=== PATIENT | female | born 1990 | race Two or more races ===

== ENCOUNTER → 2024-05-31 | Outpatient (CLI) | payer BC, MEDICAID ==
[2024-05-31 10:06] LABS: Urine Bacteria None Seen /hpf (None Seen)
[2024-05-31 11:00] LABS: Urine Blood Negative /uL (Negative); Urine Clarity Clear (Clear); Urine Color Yellow (Yellow); Urine Mucus FEW (None Seen); Urine Protein, UAD TRACE (Negative); Urine Specific Gravity 1.023 (1.001-1.035); Urine Urobilinogen Normal (Negative); Urine WBC 1 /hpf (0 - 5)
[2024-05-31 11:06] LABS: Basophils # (auto) 0 10 ^3/uL (0-0.2); Basophils % (auto) 0.5 % (0.0-2.0); Eosinophils # (auto) 0.1 10 ^3/uL (0-0.8); Eosinophils % (auto) 0.8 % (0.0-7.0); Hematocrit 43.1 % (36.0-46.0); Hemoglobin 14.6 g/dL (12.2-16.2); Lymphocytes # (auto) 2.8 10 ^3/uL (0.4-5.4); Mean Corpuscular Hemoglobin 29.8 pg (28.0-32.0); Mean Corpuscular Hgb Conc. 33.8 g/dL (32.0-36.0); Mean Corpuscular Volume 88.2 fL (80.0-100.0); Monocytes # (auto) 0.6 10 ^3/uL (0-1.3); Monocytes % (auto) 6.3 % (0.0-12.0); Neutrophils # (auto) 5.9 10 ^3/uL (1.6-8.6); Neutrophils % (auto) 62.4 % (37.0-80.0); Platelet Count (auto) 272 10^3/uL (140-450); Red Blood Cells 4.88 10^6/uL (4.0-5.20); Red Cell Distribution Width 16.2 % (11.8-14.3); White Blood Cell 9.4 10^3/uL (4.4-10.8)
[2024-05-31 11:10] LABS: Folate (Folic Acid) 10.79 ng/mL (>5.38)
[2024-05-31 11:12] LABS: Alanine Aminotransferase 25 U/L (7-40); Albumin 4.4 g/dL (3.2-4.8); Alkaline Phosphatase 67 U/L (46-116); Anion Gap 8 (5-15); Aspartate Aminotransferase 23 U/L (13-40); BUN/Creatinine Ratio 8.6 (10.0-20.0); Blood Urea Nitrogen 7 mg/dL (9-23); Calcium 9.7 mg/dL (8.7-10.4); Carbon Dioxide 25 mmol/L (20-31); Chloride 106 mmol/L (98-107); Cholesterol 151 mg/dL (< 200); Glucose 106 mg/dL (74-106); HDL Cholesterol 50 mg/dL (40-59); LDL Cholesterol 77 mg/dL (< 100); Potassium 4.1 mmol/L (3.5-5.1); Sodium 139 mmol/L (136-145); Triglycerides 192 mg/dL (< 150)
[2024-05-31 11:13] LABS: Bilirubin, Total 0.4 mg/dL (0.2-1.0); Leuteinizing Hormone 8.6 IU/L; Total Protein 7.3 g/dL (5.7-8.2)
[2024-05-31 11:14] LABS: Follicle Stimulating Hormone 4.65 IU/L (SEE BELOW); Prolactin 8.57 ng/mL (2.8-29.2)
[2024-05-31 11:33] LABS: Uric Acid 7.5 mg/dL (3.1-7.8)
[2024-06-01 08:06] LABS: Complement C3 128 mg/dL (82-167); Rheumatoid Arthritis Factor <10.0 IU/mL (<14.0); Thyroid Peroxidase (TPO) Ab 166 IU/mL (0-34)
[2024-06-01 15:07] LABS: Anti-Nuclear Antibody Direct Negative (Negative); Anti-dsDNA Antibody 4 IU/mL (0-9); Antiscleroderma-70 Antibody <0.2 AI (0.0-0.9); RNP Antibody <0.2 AI (0.0-0.9); Sjogren's Anti-SS-A Antibody <0.2 AI (0.0-0.9); Sjogren's Anti-SS-B Antibody <0.2 AI (0.0-0.9); Smith Antibody <0.2 AI (0.0-0.9)
== END | disposition home or self-care (01) ==
LOC: LAB 09:50
PROVIDERS: ATTEND Family Medicine
DX: E66.01 Morbid (severe) obesity due to excess calories (principal); R76.8 Other specified abnormal immunological findings in serum; Z00.00 Encounter for general adult medical examination without abnormal findings; Z84.0 Family history of diseases of the skin and subcutaneous tissue
CPT/HCPCS: 36415; 80053; 80061; 81001; 82306; 82607; 82626; 82670; 82746; 83001; 83002; 83036; 83540; 83550; 84144; 84146; 84403; 84443; 84550; 85025; 86160; 86225; 86235; 86376; 86431

== ENCOUNTER 2024-09-03 07:11 | Day surgery (SDC) | payer BC, MEDICAID ==
[2024-08-29 09:21] LABS: Urine Bacteria None Seen /hpf (None Seen)
[2024-08-29 10:10] LABS: Alanine Aminotransferase 26 U/L (7-40); Alkaline Phosphatase 59 U/L (46-116); Anion Gap 6 (5-15); BUN/Creatinine Ratio 8.3 (10.0-20.0); Calcium 9.6 mg/dL (8.7-10.4); Carbon Dioxide 28 mmol/L (20-31); Chloride 104 mmol/L (98-107); Sodium 138 mmol/L (136-145)
[2024-08-29 10:11] LABS: Albumin 4.1 g/dL (3.2-4.8); Aspartate Aminotransferase 20 U/L (13-40)
[2024-08-29 10:12] LABS: Bilirubin, Total 0.4 mg/dL (0.2-1.0); Blood Urea Nitrogen 7 mg/dL (9-23); Glucose 115 mg/dL (74-106); Total Protein 6.6 g/dL (5.7-8.2)
[2024-08-29 10:48] LABS: Basophils # (auto) 0 10 ^3/uL (0-0.2); Basophils % (auto) 0.4 % (0.0-2.0); Eosinophils # (auto) 0.1 10 ^3/uL (0-0.8); Hematocrit 39.9 % (36.0-46.0); Hemoglobin 13.2 g/dL (12.2-16.2); Lymphocytes # (auto) 2.8 10 ^3/uL (0.4-5.4); Lymphocytes % (auto) 35.7 % (10.0-50.0); Mean Corpuscular Hemoglobin 28.9 pg (28.0-32.0); Mean Corpuscular Volume 87.3 fL (80.0-100.0); Monocytes # (auto) 0.6 10 ^3/uL (0-1.3); Monocytes % (auto) 7.7 % (0.0-12.0); Neutrophils # (auto) 4.3 10 ^3/uL (1.6-8.6); Neutrophils % (auto) 55.2 % (37.0-80.0); Platelet Count (auto) 214 10^3/uL (140-450); Red Blood Cells 4.57 10^6/uL (4.0-5.20); White Blood Cell 7.8 10^3/uL (4.4-10.8)
[2024-08-29 11:15] LABS: Urine Blood Negative /uL (Negative); Urine Clarity Clear (Clear); Urine Color Light-Yellow (Yellow); Urine Mucus FEW (None Seen); Urine Protein, UAD Negative (Negative); Urine Specific Gravity 1.019 (1.001-1.035); Urine Squamous Epithelial Cell FEW /hpf (<5); Urine Urobilinogen Normal (Negative); Urine WBC 1 /hpf (0 - 5); Urine pH 5.5 (5.0-9.0)
[2024-08-29 11:37] LABS: Prothrombin Time 10.5 sec (9.3-11.8)
[2024-08-29 11:38] LABS: INR 0.99 (0.9-1.15); Partial Thromboplastin Time 25.3 SEC (24.5-34.5)
[~2024-09-03] VITALS: Ht 162.6 cm; Wt 117.9 kg
[~2024-09-03 07:11] MED LIST: CLON-1003 PO; LISI20TA60 PO; MELA10TA PO; TRAZ150T84 PO
[2024-09-03] MEDS ORDERED: PROPOFOL 10 MG/ML 20 ML IV ONE (07:56)
[2024-09-03] MEDS ORDERED: KETAMINE 50mg/ML 1ml syringe ONE (07:56)
[2024-09-03] MEDS ORDERED: SODIUM CHLORIDE LOCK 20 ML ONE (08:00)
[2024-09-03] MEDS ORDERED: EPINEPHrine HCL 1 MG/1 ML AMP ONE (08:00)
[2024-09-03] MEDS ORDERED: PHENYLEPHRINE HCL 10 MG/ML VL ONE (08:00)
[2024-09-03] MEDS ORDERED: ONDANSETRON HCL 4 MG/2 ML VIAL ONE (08:24)
[2024-09-03 09:15] VITALS: BP 128/74; PULSE 65; RESP 14; O2SAT 95
--- NOTE | 2024-09-04 11:49 | DVHNC2 ---
Procedure - PROCEDURE DATE: September 03, 2024 SURGEON: Shaka Maloney MD REFERRING PROVIDER: Jaimee Gomez PROCEDURE PERFORMED: 1. EGD WITH BIOPSY WITH ANESTHESIA 2. COLONOSCOPY WITH HOT SNARE POLYPECTOMY WITH ANESTHESIA 3. COLONOSCOPY WITH BIOPSY WITH ANESTHESIA 4. COLONOSCOPY WITH ENDOCLIP PLACEMENT WITH ANESTHESIA PRE-PROCEDURE DIAGNOSIS: 1. Diarrhea 2. Hematochezia POSTPROCEDURE DIAGNOSIS: 1. LA grade capital a erosive esophagitis 2. Z-line at 37 cm 3. Moderate erosive gastritis, biopsies taken 4. Normal duodenum, biopsies taken 5. 4 mm ascending colon polyp removed with biopsy forceps 5. Mild left-sided diverticulosis 6. 3 mm descending colon polyp removed with biopsy forceps 7. 1.5 cm descending colon polyp removed with hot snare polypectomy 8. 1+ internal hemorrhoids INDICATIONS FOR PROCEDURE: The patient is a 34-year-old female with chronic diarrhea and rectal bleeding, family history of colon cancer who presents for outpatient endoscopy and colonoscopy. ANESTHESIOLOGY: Per Dr. Da Silva DETAILS OF THE PROCEDURE: Informed consent was obtained after risks, benefits, and alternatives, were discussed at length with the patient. Consent was given for the procedures as well as for the anesthesia. Patient was placed in the left lateral decubitus position. An Olympus endoscope was inserted into the oropharynx and advanced into the esophagus, then into the stomach, then into the duodenal bulb and duodenum. The duodenal bulb and duodenum were normal. Biopsies were taken given the patient's symptoms. The scope was then withdrawn. The stomach showed a moderate erosive gastritis. There was fresh blood in the stomach. Biopsies were taken and sent for pathology. Retroflexion showed no abnormalities. The endoscope was then withdrawn. The Z-line was at 37 cm, in the patient had LA grade A erosive esophagitis. The patient tolerated the procedure well. The patient remained in the left lateral decubitus position. Digital rectal exam showed internal hemorrhoids. An Olympus variable torsion pediatric colonoscope was inserted into the rectum and advanced to the cecum. The cecum was identified by the ileocecal valve in the appendiceal orifice. The scope was then withdrawn. The prep was good with only small amounts of stool. Small or flat lesions could have been missed. Random biopsies were taken of the colon to rule out microscopic colitis. The patient had a 4 mm ascending colon polyp completely removed with biopsy forceps. The patient also had a 3 mm descending colon polyp removed with biopsy forceps, and a larger 1.5 cm polyp removed with hot snare polypectomy. One Endoclip was placed further mucosal defect. There was no masses, ulceration or inflammation seen. The patient had mild left-sided diverticulosis. Retroflexion showed internal hemorrhoids. 11 minutes of withdrawal time was noted. The patient tolerated the procedure well. Colonoscopy start time: 824 Colonoscopy cecum time: 825 Colonoscopy in time: 836. IMPRESSION: 1. Mild erosive esophagitis 2. Moderate erosive gastritis 3. Three colon polyps measuring between 3 mm and 1.5 cm 4. Mild left-sided diverticulosis 5. Internal hemorrhoids RECOMMENDATIONS: 1. Follow up with biopsies of the endoscopy and colonoscopy 2. The patient should be on a proton pump inhibitor, 30 minutes before breakfast daily 3. Anti-reflux precautions, weight loss, elevate the head of bed while sleeping, avoid spicy food, greasy food, tobacco, alcohol, chocolate, citrus etc. 4. Repeat colonoscopy in 2-3 years pending pathology unless otherwise indicated 5. Consider IBS, pancreatic insufficiency, or other etiology of the patient's symptoms if they persist or worsen 6. Consider medical management of the hemorrhoids or surgical referral I would like to thank Dr. Gomez for this referral. SHAKA MALONEY MD Sep 04, 2024 11:49
== END 2024-09-03 09:15 | disposition home or self-care (01) ==
LOC: GI 07:11
PROVIDERS: ATTEND Specialist
DX: K92.1 Melena (principal); D12.2 Benign neoplasm of ascending colon; D12.4 Benign neoplasm of descending colon; K29.50 Unspecified chronic gastritis without bleeding; K52.9 Noninfective gastroenteritis and colitis, unspecified; K57.30 Diverticulosis of large intestine without perforation or abscess without bleeding; K22.10 Ulcer of esophagus without bleeding; K64.8 Other hemorrhoids; I10 Essential (primary) hypertension; G47.30 Sleep apnea, unspecified; E06.3 Autoimmune thyroiditis; F41.9 Anxiety disorder, unspecified; Z79.899 Other long term (current) drug therapy; Z80.0 Family history of malignant neoplasm of digestive organs
CPT/HCPCS: 36415; 43239; 45380; 45385; 80053; 81001; 84702; 85025; 85610; 85730; 88305; 88312; 88342; J0171; J2371; J2405; J2704